=== PATIENT | male | born 1985 | race Caucasian/White ===

== ENCOUNTER → 2016-10-15 | Outpatient (CLI) | payer BC | LOC: KOH-I 13:45 | DX: S83.241D Other tear of medial meniscus, current injury, right knee, subsequent encounter (principal) | CPT/HCPCS: 73721 ==

== ENCOUNTER → 2017-01-22 | Outpatient (CLI) | payer OTHER | LOC: EMI 17:20 | DX: M25.511 Pain in right shoulder (principal) | CPT/HCPCS: 73221 ==